=== PATIENT | male | born 1995 | race Hispanic/Latino ===

== ENCOUNTER 2017-10-05 21:05 | Emergency (ER) | payer OTHER ==
[~2017-10-05] VITALS: Ht 154.9 cm; Wt 67.2 kg
[2017-10-05] MEDS ORDERED: MOTRIN800 MG PO (23:48)
[2017-10-05] MEDS ORDERED: NORCO 7.5/321 TABLET PO (23:48)
[2017-10-06 00:08] VITALS: BP 119/86
== END 2017-10-06 00:09 | disposition home or self-care (01) ==
LOC: EME 21:05
PROC: 3E0234Z Introduction of Serum, Toxoid and Vaccine into Muscle, Percutaneous Approach (ICD-10-PCS; principal; 2017-10-05)
DX: T15.01XA Foreign body in cornea, right eye, initial encounter (principal); W26.8XXA Contact with other sharp object(s), not elsewhere classified, initial encounter; Z23 Encounter for immunization
CPT/HCPCS: 99281; 99284